=== PATIENT | female | born 1945 ===

== ENCOUNTER 2016-04-20 08:31 | Emergency (ER) | payer SELFPAY ==
[2016-04-20 08:53] VITALS: BP 122/64
--- NOTE | 2016-04-20 09:52 | UC ---
Skin Complaint HPI - HPI Summary HPI Summary: The patient comes in today for: 1. Sores/rash right hand: Onset: one week ago. Palliative/provocative: Not using the hand helps with the pain. Lack of pressure helps reduce the pain. Quality: Ache. Region: Right hand (index finger and web between the thumb and index finger. Severity: 5/10 Time: Constant. Associated symptoms: Initially: there was pain of the back of the left, and then clear blisters formed of the spaces mentioned above. * - History of Current Complaint Chief Complaint: UCRash Time Seen by Provider: 04/20/16 09:41 Stated Complaint: RIGHT HAND COMPLAINT Hx Last Menstrual Period: N/A - Allergy/Home Medications Allergies/Adverse Reactions: Allergies Allergy/AdvReac Type Severity Reaction Status Date / Time No Known Allergies Allergy Verified 04/20/16 08:43 Home Medications: Home Medications Apixaban* [Eliquis*] 5 mg PO DAILY 04/20/16 [History Confirmed 04/20/16] Metoprolol Succinate XL TAB* [Toprol XL TAB*] 100 mg PO DAILY 04/20/16 [History Confirmed 04/20/16] NIFEdipine CAP* [Procardia CAP*] 20 mg PO DAILY 04/20/16 [History Confirmed 11/27] Review of Systems Constitutional: Negative Skin: Rash Eyes: Negative ENT: Negative Respiratory: Negative Cardiovascular: Negative Gastrointestinal: Negative Genitourinary: Negative All Other Systems Reviewed And Are Negative: Yes PMH/Surg Hx/FS Hx/Imm Hx Previously Healthy: No Endocrine History Of: Denies: Diabetes, Thyroid Disease, Hyperthyroidism, Hypothyroidism, Dyslipidemia Cardiovascular History Of: Reports: Cardiac Disorders - AFIB, Hypertension, Atrial Fibrillation Denies: Pacemaker/ICD, Myocardial Infarction, Congestive Heart Failure, Deep Vein Thrombosis, Bleeding Disorders Respiratory History Of: Denies: COPD, Asthma, Bronchitis, Pneumonia, Pulmonary Embolism GI/ History Of: Denies: Gastroesophageal Reflux, Ulcer, Gastrointestinal Bleed, Gall Bladder Disease, Kidney Stones, Diverticulitis, Renal Disease, Urosepsis Neurological History Of: Denies: TIA, CVA, Dementia, Seizures, Migraine Psychological History Of: Denies: Anxiety, Depression, Bipolar Disorder, Schizophrenia, Post Traumatic Stress Disorder Cancer History Of: Denies: Lung Cancer, Colorectal Cancer, Breast Cancer, Prostate Cancer, Cervical Cancer Other History Of: Anticoagulant Therapy - Eliquis for a-fib. Negative For: HIV, Hepatitis B, Hepatitis C - Surgical History Surgical History: None - Family History Known Family History: Positive: Hypertension Negative: Cardiac Disease - Social History Occupation: Retired Alcohol Use: None Substance Use Type: None Smoking Status (MU): Never Smoked Tobacco Physical Exam Triage Information Reviewed: Yes Appearance: Well-Appearing, No Pain Distress, Well-Nourished Vital Signs: Initial Vital Signs Temp 98.5 F 04/20/16 08:46 Pulse 72 04/20/16 08:46 Resp 20 04/20/16 08:46 BP 122/64 04/20/16 08:46 Pulse Ox 98 04/20/16 08:46 Vital Signs Reviewed: Yes Eyes: Positive: Conjunctiva Clear. Negative: Discharge ENT: Positive: Hearing grossly normal. Negative: Pharyngeal erythema, Nasal congestion, Nasal drainage, TM bulging, TM dull, TM red, Tonsillar swelling, Tonsillar exudate Dental: Negative: Gross Decay/Caries @, Dental Fracture @ Neck: Positive: Supple, Nontender, No Lymphadenopathy. Negative: Nuchal Rigidity Respiratory: Positive: Lungs clear, No respiratory distress, No accessory muscle use. Negative: Crackles, Wheezing Cardiovascular: Positive: RRR, No Murmur Abdomen Description: Positive: Nontender, No Organomegaly, Soft. Negative: Distended, Guarding Musculoskeletal: Positive: Strength Intact, ROM Intact Neurological: Positive: Alert, Muscle Tone Normal Psychological: Positive: Age Appropriate Behavior, Consolable Skin: Positive: Other - Clear blisters in clusters (5 on hand, one scabbed one on upper forearm).. Negative: rashes, breakdown Course/Dx - Course Course Of Treatment: Patient/daughter were told of the diagnosis and treatment options. At this time, due to the pain not being that bad, the decision was made to not give pain medications. Contagion precautions were discussed. - Differential Diagnoses - Skin Complaint Differential Diagnoses: Cellulitis, Impetigo, Urticaria - Diagnoses Provider Diagnoses: Shingles, right hand (right C6) Discharge - Discharge Plan Condition: Stable Disposition: HOME Patient Education Materials: Shingles (ED), Shingles Vaccine (ED) Referrals: Non Staff,Doctor [Primary Care Provider] - 1 Week (Please see your primary care provider in about a week to see how well you are doing. If you get worse, please be seen sooner.)
== END 2016-04-20 10:22 | disposition home or self-care (01) ==
LOC: UCCORT 08:31
DX: B02.9 Zoster without complications (principal); I10 Essential (primary) hypertension; I48.91 Unspecified atrial fibrillation; Z79.01 Long term (current) use of anticoagulants
CPT/HCPCS: 99201; G0463